=== PATIENT | male | born 1945 | race Caucasian/White ===

== ENCOUNTER 2023-04-14 12:16 | Emergency (ER) | payer MEDICARE, BC ==
--- NOTE | 2023-04-14 12:56 | ED ---
Back Pain HPI - General Chief Complaint: Back Pain/Injury Stated Complaint: Back Pain Time Seen by Provider: 04/14/23 12:26 Source: patient, RN notes reviewed, old records reviewed Limitations: no limitations - History of Present Illness Initial Comments: This is a 77-year-old male presents to the emergency department for evaluation of severe back pain. Pain is episodic for a few days to weeks now. But worsening today he has a history of back pain with his back pain is worse multiple point of patient is unable to do his normal activities of daily living. Patient has persistent back pain here in the ER with no loss of bowel or bladder no neurological deficits MD Complaint: back pain, back injury -: days(s) Similar Symptoms Previously: Yes Place: home Radiation: buttocks, left leg, right leg Severity: moderate Severity scale (1-10): 6 Quality: stabbing Consistency: constant Improves With: none Worsens With: none Associated Symptoms: denies other symptoms Treatments Prior to Arrival: other (0) - Related Data Allergies Allergy/AdvReac Type Severity Reaction Status Date / Time Penicillins Allergy Rash/Hives Verified 04/14/23 12:23 aspirin AdvReac Nausea & Verified 04/14/23 12:23 Vomiting Review of Systems ROS Statement: Those systems with pertinent positive or pertinent negative responses have been documented in the HPI. ROS Other: All systems not noted in ROS Statement are negative. Past Medical History Past Medical History: No Reported History History of Any Multi-Drug Resistant Organisms: None Reported Past Surgical History: No Surgical Hx Reported Past Psychological History: No Psychological Hx Reported Smoking Status: Current every day smoker Past Alcohol Use History: None Reported Past Drug Use History: None Reported General Exam Limitations: no limitations General appearance: alert, in no apparent distress Head exam: Present: atraumatic, normocephalic, normal inspection Eye exam: Present: normal appearance, PERRL, EOMI. Absent: scleral icterus, conjunctival injection, periorbital swelling ENT exam: Present: normal exam, mucous membranes moist Neck exam: Present: normal inspection. Absent: tenderness, meningismus, lymphadenopathy Respiratory exam: Present: normal lung sounds bilaterally. Absent: respiratory distress, wheezes, rales, rhonchi, stridor Cardiovascular Exam: Present: regular rate, normal rhythm, normal heart sounds. Absent: systolic murmur, diastolic murmur, rubs, gallop, clicks GI/Abdominal exam: Present: soft, normal bowel sounds. Absent: distended, tenderness, guarding, rebound, rigid Extremities exam: Present: normal inspection, full ROM, normal capillary refill. Absent: tenderness, pedal edema, joint swelling, calf tenderness Back exam: Present: normal inspection Neurological exam: Present: alert, oriented X3, CN II-XII intact Psychiatric exam: Present: normal affect, normal mood Skin exam: Present: warm, dry, intact, normal color. Absent: rash Course Vital Signs 04/14/23 04/14/23 04/14/23 12:21 17:34 18:41 Temperature 98.4 F 98.1 F Pulse Rate 102 H 82 76 Respiratory 20 16 16 Rate Blood Pressure 166/102 151/76 152/76 O2 Sat by Pulse 99 96 98 Oximetry 04/14/23 20:33 Temperature Pulse Rate 91 Respiratory 18 Rate Blood Pressure 132/83 O2 Sat by Pulse 97 Oximetry - Reevaluation(s) Reevaluation #1: medical records reviewed Reevaluation #2: Patient's back pain is improved Reevaluation #3: Patient informed results and questions answered Reevaluation #4: Was pt. sent in by a medical professional or institution (, PA, CLAIMS ACCOUNT MANAGER, urgent care, hospital, or care home...) When possible be specific @ -no Did you speak to anyone other than the patient for history (EMS, parent, family, police, friend...)? What history was obtained from this source @ -no Did you review nursing and triage notes (agree or disagree)? Why? @ -agree Are old charts reviewed (outside hosp., previous admission, EMS record, old EKG, old radiological studies, urgent care reports/EKG's, care home records)? Report findings @ -yes Differential Diagnosis (chest pain, altered mental status, abdominal pain women, abdominal pain men, vaginal bleeding, weakness, fever, dyspnea, syncope, headach e, dizziness, GI bleed, back pain, seizure, CVA, palpatations, mental health, musculoskeletal)? @ -prior EKG interpreted by me (3pts min.). @ -yes X-rays interpreted by me (1pt min.). @ -no CT interpreted by me (1pt min.). @ -ye patient does have AAAs U/S interpreted by me (1pt. min.). @ -no What testing was considered but not performed or refused? (CT, X-rays, U/S, labs)? Why? @ -none What meds were considered but not given or refused? Why? @ -none Did you discuss the management of the patient with other professionals (professionals i.e. , PA, CLAIMS ACCOUNT MANAGER, lab, RT, psych nurse, social human services assistants, project controls specialist, teacher, security officer, therapeutic case manager)? Give summary @ -no Was smoking cessation discussed for >3mins.? @ -no Was critical care preformed (if so, how long)? @ -no Were there social determinants of health that impacted care today? How? (Homelessness, low income, unemployed, alcoholism, drug addiction, transportation, low edu. Level, literacy, decrease access to med. care, half-way, rehab)? @ -none Was there de-escalation of care discussed even if they declined (Discuss DNR or withdrawal of care, Hospice)? DNR status @ -no What co-morbidities impacted this encounter? (DM, HTN, Smoking, COPD, CAD, Cancer, CVA, ARF, Chemo, Hep., AIDS, mental health diagnosis, sleep apnea, morbid obesity)? @ -none Was patient admitted / discharged? Hospital course, mention meds given and route, prescriptions, significant lab abnormalities, going to OR and other pertinent info. @ - 77 male to the emergency department for evaluation significant back pain here in the ER. Patient is well-controlled currently. Patient with vascular surgery states patient does not need hospital admission his back pain is not being caused by his aneurysm. Patient will follow-up as an outpatient with basilar surgery can be discharged home Discharge Undiagnosed new problem with uncertain prognosis? @ -no Drug Therapy requiring intensive monitoring for toxicity (Heparin, Nitro, Insulin, Cardizem)? @ -no Were any procedures done? @ -no Diagnosis/symptom? @ -AAA Acute, or Chronic, or Acute on Chronic? @ -Acute Uncomplicated (without systemic symptoms) or Complicated (systemic symptoms)? @ -Complicated Side effects of treatment? @ -no Exacerbation, Progression, or Severe Exacerbation? @ -exacerbation Poses a threat to life or bodily function? How? (Chest pain, [place], [place], pneumonia, PE, COPD, DKA, ARF, appy, cholecystitis, CVA, Diverticulitis, Homicidal, Suicidal, threat to staff... and all critical care pts) @ -yes significant AAA Reevaluation #5: Differential Back Pain: Strain, zoster, cauda equina syndrome, epidural abscess, vertebral osteomye litis, discitis, fracture, subluxation, disc herniation, DJD, spinal stenosis, dissection, AAA, pancreatitis, peptic ulcer disease, pyelonephritis, kidney stone, this is not meant to be an all-inclusive list. - Consultations Consultation #1: Spoke with vascular surgery who will see the patient for evaluation patient has an outpatient, not cause of current back pain Medical Decision Making - Medical Decision Making 77 male to the emergency department for evaluation significant back pain here in the ER. Patient is well-controlled currently. Patient with vascular surgery states patient does not need hospital admission his back pain is not being caused by his aneurysm. Patient will follow-up as an outpatient with basilar surgery can be discharged home - Lab Data Result diagrams: 04/14/23 17:13 04/14/23 17:12 Lab Results 04/14/23 04/14/23 04/14/23 Range/Units 13:42 17:12 17:12 WBC (3.8-10.6) k/uL RBC (4.30-5.90) m/uL Hgb (13.0-17.5) gm/dL Hct (39.0-53.0) % MCV (80.0-100.0) fL MCH (25.0-35.0) pg MCHC (31.0-37.0) g/dL RDW (11.5-15.5) % Plt Count (150-450) k/uL MPV Neutrophils % % Lymphocytes % % Monocytes % % Eosinophils % % Basophils % % Neutrophils # (1.3-7.7) k/uL Lymphocytes # (1.0-4.8) k/uL Monocytes # (0-1.0) k/uL Eosinophils # (0-0.7) k/uL Basophils # (0-0.2) k/uL PT 10.7 (10.0-12.5) sec INR 1.0 (<1.2) APTT 23.5 (22.0-30.0) sec Sodium 143 (137-145) mmol/L Potassium 4.0 (3.5-5.1) mmol/L Chloride 103 (98-107) mmol/L Carbon Dioxide 27 (22-30) mmol/L Anion Gap 13 mmol/L BUN 13 (9-20) mg/dL Creatinine 1.02 (0.66-1.25) mg/dL Est GFR (CKD-EPI)AfAm 81 (>60 ml/min/1.73 sqM) Est GFR (CKD-EPI)NonAf 70 (>60 ml/min/1.73 sqM) Glucose 111 H (74-99) mg/dL Plasma Lactic Acid Emerson (0.7-2.0) mmol/L Calcium 10.3 H (8.4-10.2) mg/dL Phosphorus 3.8 (2.5-4.5) mg/dL Magnesium 1.9 (1.6-2.3) mg/dL Total Bilirubin 0.7 (0.2-1.3) mg/dL AST 48 (17-59) U/L ALT 27 (4-49) U/L Alkaline Phosphatase 43 (38-126) U/L Troponin I (0.000-0.034) ng/mL Total Protein 8.3 H (6.3-8.2) g/dL Albumin 4.9 (3.5-5.0) g/dL Urine Color Colorless Urine Appearance Clear (Clear) Urine pH 5.5 (5.0-8.0) Ur Specific [place] 1.006 (1.001-1.035) Urine Protein Negative (Negative) Urine Glucose (UA) Negative (Negative) Urine Ketones Negative (Negative) Urine Blood Negative (Negative) Urine Nitrite Negative (Negative) Urine Bilirubin Negative (Negative) Urine Urobilinogen <2.0 (<2.0) mg/dL Ur Leukocyte Esterase Negative (Negative) 04/14/23 04/14/23 04/14/23 Range/Units 17:12 17:12 17:13 WBC 12.2 H (3.8-10.6) k/uL RBC 5.55 (4.30-5.90) m/uL Hgb 17.6 H (13.0-17.5) gm/dL Hct 53.0 (39.0-53.0) % MCV 95.6 (80.0-100.0) fL MCH 31.7 (25.0-35.0) pg MCHC 33.1 (31.0-37.0) g/dL RDW 12.5 (11.5-15.5) % Plt Count 202 (150-450) k/uL MPV 8.0 Neutrophils % 64 % Lymphocytes % 29 % Monocytes % 5 % Eosinophils % 1 % Basophils % 0 % Neutrophils # 7.7 (1.3-7.7) k/uL Lymphocytes # 3.6 (1.0-4.8) k/uL Monocytes # 0.6 (0-1.0) k/uL Eosinophils # 0.1 (0-0.7) k/uL Basophils # 0.1 (0-0.2) k/uL PT (10.0-12.5) sec INR (<1.2) APTT (22.0-30.0) sec Sodium (137-145) mmol/L Potassium (3.5-5.1) mmol/L Chloride (98-107) mmol/L Carbon Dioxide (22-30) mmol/L Anion Gap mmol/L BUN (9-20) mg/dL Creatinine (0.66-1.25) mg/dL Est GFR (CKD-EPI)AfAm (>60 ml/min/1.73 sqM) Est GFR (CKD-EPI)NonAf (>60 ml/min/1.73 sqM) Glucose (74-99) mg/dL Plasma Lactic Acid [place] 1.8 (0.7-2.0) mmol/L Calcium (8.4-10.2) mg/dL Phosphorus (2.5-4.5) mg/dL Magnesium (1.6-2.3) mg/dL Total Bilirubin (0.2-1.3) mg/dL AST (17-59) U/L ALT (4-49) U/L Alkaline Phosphatase (38-126) U/L Troponin I <0.012 (0.000-0.034) ng/mL Total Protein (6.3-8.2) g/dL Albumin (3.5-5.0) g/dL Urine Color Urine Appearance (Clear) Urine pH (5.0-8.0) Ur Specific [place] (1.001-1.035) Urine Protein (Negative) Urine Glucose (UA) (Negative) Urine Ketones (Negative) Urine Blood (Negative) Urine Nitrite (Negative) Urine Bilirubin (Negative) Urine Urobilinogen (<2.0) mg/dL Ur Leukocyte Esterase (Negative) - EKG Data -: EKG Interpreted by Me (EKG is sinus 81 VT 160 QRS 125 QTc 403) - Radiology Data Radiology results: report reviewed (CT of the abdomen pelvis lumbosacral spine and AAA CT showed no acute bleeding but does show extensive AAA small), image reviewed Disposition Clinical Impression: Mid back pain, Thoracic back pain, AAA (abdominal aortic aneurysm) Disposition: HOME SELF-CARE Condition: Good Instructions (If sedation given, give patient instructions): Nonruptured Abdominal Aortic Aneurysm (DC), Acute Low Back Pain (ED) Is patient prescribed a controlled substance at d/c from ED?: No Referrals: Kirby Thao DO [Doctor of Osteopathic Medicine] - 1-2 days Time of Disposition: 20:00
[2023-04-14] MEDS ORDERED: HYDROmorphone 1 MG/ML 1 ML SYRINGE IM STA (12:57)
[2023-04-14 13:56] LABS: Appearance,Urine Clear (Clear); Bilirubin,Urine Negative (Negative); Blood,Urine Negative (Negative); Color,Urine Colorless; Glucose,Urine (UA) Negative (Negative); Ketones,Urine Negative (Negative); Leukocyte Esterase,Urine Negative (Negative); Nitrite,Urine Negative (Negative); PH, Urine 5.5 (5.0-8.0); Protein,Urine Negative (Negative); Specific Gravity,Urine 1.006 (1.001-1.035); Urobilinogen,Urine <2.0 mg/dL (<2.0)
--- NOTE | 2023-04-14 15:12 | CT ---
EXAMINATION TYPE: CT lumbar spine wo con CT DLP: 1143.6 mGycm, Automated exposure control for dose reduction was used. DATE OF EXAM: 04/14/2023 1:31 PM COMPARISON: . CLINICAL INDICATION:Male, 77 years old with history of pain; PHH, back pain for 1 month TECHNIQUE: Multiple axial images were obtained from the midportion of T11 through the sacroiliac saira nts. Soft tissue and bone windows in coronal and sagittal planes were obtained and reviewed. 3-D ref ormats of the bones were created on a separate workstation and submitted for review. Contrast used: mL of , none. Oral contrast used: none. FINDINGS: There are 5 lumbar-type vertebral bodies. Bones appear demineralized. No evidence of lytic/blastic le alirio. There are moderate to severe multilevel degenerative changes and facet arthrosis, with large br idging osteophytes and relative preservation of the disc spaces which can be seen with DISH. 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 Bony fusion al calos the tips of the spinous processes noted from L1 up into the thoracic spine. No acute fracture is identified. No AP malalignment. No significant scoliosis. Degenerative changes with near complete fus ion of the SI joints. Discs: T12-L1: Mild canal and neural foraminal stenoses. L1-L2: No significant canal stenosis. Mild foraminal stenoses. L2-L3: Mild canal and bilateral foraminal stenosis. L3-L4: Moderate circumferential canal stenosis and mild to moderate foraminal stenoses L4-L5: Moderate spinal canal and bilateral neural foraminal stenoses. L5-S1: Moderate spinal canal stenosis with significant disc osteophyte extension to the right lateral recess and right neural foramen with severe right neural foraminal stenosis. Moderate to severe left neural foraminal stenosis. Other: Please refer to same day CT body report for further description of findings. IMPRESSION: 1. Generalized osteopenia. Diffuse moderate to severe chronic/degenerative changes throughout the patrica mbar spine, with findings suggestive of DISH. 2. No evidence of fracture or traumatic malalignment.
--- NOTE | 2023-04-14 15:33 | CT ---
EXAMINATION TYPE: CT abdomen pelvis wo con CT DLP: 1143.6 mGycm, Automated exposure control for dose reduction was used. DATE OF EXAM: 04/14/2023 1:31 PM COMPARISON: CLINICAL INDICATION:Male, 77 years old with history of pain; back pain for 1 month TECHNIQUE: Axial CT of the abdomen and pelvis. Sagittal and coronal reformats were created on a [employer] workstation. Contrast used: mL of , (none if empty) Oral contrast used: without Oral Contrast (none if empty) FINDINGS: Exam is limited by lack of contrast. LOWER CHEST: Scarring/senescent changes. Prominent pleural fat on the left, no sizable pleural or per icardial effusion. Heart size upper normal with moderate coronary arterial calcifications. Ascending thoracic aorta appears dilated measuring up to 3.9 cm however incompletely seen or assessed. Eventration is noted along the diaphragm bilaterally. ABDOMEN LIVER: Grossly unremarkable. GALLBLADDER AND BILE DUCTS: Unremarkable. PANCREAS: Fatty infiltrated without acute finding SPLEEN: Unremarkable. ADRENAL GLANDS: Unremarkable. KIDNEYS AND URETERS: A couple punctate left renal calculi. Extrarenal pelvis bilaterally. No dilated ureters or ureteral calculi seen. PELVIS BLADDER: Base of bladder indented by the enlarged prostate. Bladder is mildly distended. There are a couple of adjacent calculi within the left posterior bladder measuring up to 8 mm and 5 mm. REPRODUCTIVE: Prostate appears enlarged, transverse measures 5.9 cm and extends about 5.3 cm cranioc audally. A few tiny parenchymal calcifications are seen. ABDOMEN & PELVIS STOMACH AND BOWEL: Stomach and small bowel are nondistended, no evidence of obstruction. Appendix i s not identified with certainty, however there is no inflammatory process seen in the RLQ. Mild/mode rate stool and gas throughout the colon. Scattered diverticula are seen, mostly in the sigmoid region , without evidence of diverticulitis. Sigmoid is noted to be quite tortuous and redundant. PERITONEUM/RETROPERITONEUM: No evidence of pneumoperitoneum or free fluid. There is no periaortic/r etroperitoneal fluid seen. VASCULATURE: Moderate atherosclerotic calcifications are present throughout the abdominal aorta and i ts branches. Mild narrowing suggested at the proximal celiac and superior mesenteric arteries. Probab le mild narrowing at the proximal renal arteries. Infrarenally, there is a bilobed aneurysm, somewhat fusiform but predominantly saccular in appearance. The superiormost portion measures 4.8 cm AP by 4. 6 cm transverse. Just inferiorly the diameter reduces to 3.9 x 4 cm, before the second lobe of the an eurysm which measures 5.3 cm AP by 5.2 cm transverse. The aneurysm terminates by the bifurcation. Dif fuse moderate calcifications throughout the iliac arterial trees. The right common iliac is 1.3 cm, l eft is 1.2 cm. MUSCULOSKELETAL: No acute osseous abnormalities. Generalized osteopenia and moderate bilateral hip ar thropathy. Please refer to separate lumbar spine CT report for further description of findings. LYMPH NODES: No gross evidence for lymphadenopathy. SOFT TISSUE/ABDOMINAL WALL: Small fat filled bilateral inguinal hernias. Mild bilateral gynecomastia. IMPRESSION: 1. No evidence of an acute obstructive or inflammatory process in the abdomen or pelvis. 2. Diffuse calcific atherosclerotic disease of the aorta and major branches. There is a bilobed infr arenal AAA with the largest portion measuring up to 5.3 cm. Vascular consult recommended. 3. Bladder calculi. Punctate left renal calculi. No hydronephrosis. 4. Other chronic and likely incidental findings, as described above.
[2023-04-14] MEDS ORDERED: SODIUM CHLORIDE 0.9% 1,000 ML IV STA (16:59)
[2023-04-14] MEDS ORDERED: LORazepam 2 MG/ML INJ IV STA (16:59)
[2023-04-14] MEDS ORDERED: HYDROmorphone 1 MG/ML 1 ML SYRINGE IVP STA (16:59)
[2023-04-14 17:24] LABS: Basophils # (A) 0.1 k/uL (0-0.2); Basophils % (A) 0 %; Eosinophils # (A) 0.1 k/uL (0-0.7); Eosinophils % (A) 1 %; HGB 17.6 gm/dL (13.0-17.5); Lymphocytes # (A) 3.6 k/uL (1.0-4.8); Lymphocytes % (A) 29 %; MCH 31.7 pg (25.0-35.0); MCHC 33.1 g/dL (31.0-37.0); MCV 95.6 fL (80.0-100.0); Monocytes # (A) 0.6 k/uL (0-1.0); Monocytes % (A) 5 %; Neutrophils # (A) 7.7 k/uL (1.3-7.7); Neutrophils % (A) 64 %; Platelet Count 202 k/uL (150-450); RBC 5.55 m/uL (4.30-5.90); RDW 12.5 % (11.5-15.5); WBC 12.2 k/uL (3.8-10.6)
[2023-04-14 17:33] LABS: Partial Thromboplastin Time 23.5 sec (22.0-30.0); Prothrombin Time 10.7 sec (10.0-12.5)
[2023-04-14 17:55] LABS: ALT 27 U/L (4-49); AST 48 U/L (17-59); African American GFR (CKD) 81 (>60 ml/min/1.73 sqM); Albumin 4.9 g/dL (3.5-5.0); Alkaline Phosphatase 43 U/L (38-126); Anion Gap 13 mmol/L; Blood Urea Nitrogen 13 mg/dL (9-20); Calcium 10.3 mg/dL (8.4-10.2); Carbon Dioxide 27 mmol/L (22-30); Chloride 103 mmol/L (98-107); Glucose 111 mg/dL (74-99); Magnesium 1.9 mg/dL (1.6-2.3); Non-African American GFR(CKD) 70 (>60 ml/min/1.73 sqM); Phosphorus 3.8 mg/dL (2.5-4.5); Sodium 143 mmol/L (137-145); Total Bilirubin 0.7 mg/dL (0.2-1.3); Total Protein 8.3 g/dL (6.3-8.2)
[2023-04-14 18:49] VITALS: TEMP 98.1
--- NOTE | 2023-04-14 19:25 | CT ---
EXAMINATION TYPE: CT angio thor/abd pel aorta CT DLP: 1217..9 mGycm, Automated exposure control for dose reduction was used. DATE OF EXAM: 04/14/2023 6:47 PM COMPARISON: 04/14/2023. CLINICAL INDICATION:Male, 77 years old with history of AAA; TECHNIQUE: Dissection protocol: Multiple axial CT images of the chest, abdomen, and pelvis were obtai gabriel prior and to the administration of IV contrast. 3-D reformats and maximum intensity projection fo rmat were performed on a separate workstation. Contrast used:100ml mL of Isovue 370 without and with IV Contrast, Oral contrast used: FINDINGS: ARTERIAL VASCULATURE: Ascending descending thoracic aorta are within normal limits for size. No evide nce for dissection. No evidence for filling defect to suggest pulmonary embolus. The origins of the a bdominal aorta are patent. There is no evidence for dissection. There is fusiform dilation and the di stal portion up to 46 x 43 mm as well as a more distal portion of dilation or mural thrombus measurin g 5.3 x 5.1 cm. PULMONARY ARTERIAL VASCULATURE: Normal caliber. No evidence of filling defect to suggest pulmonary em bolus. VENOUS SYSTEM: Unremarkable Lungs/pleura: The lung parenchyma appears unremarkable. Heart: Heart is enlarged for size. There is moderate coronary artery atherosclerosis. Mediastinum: No gross evidence of adenopathy. Lower Neck: No significant findings. Abdomen: Liver: Unremarkable. Gallbladder and Bile ducts: Unremarkable. Pancreas: Unremarkable. Spleen: Unremarkable. Adrenal glands: Unremarkable. Kidneys and Ureters: No hydronephrosis. Non obstructing left 5 mm calculus. No right renal calculi. Bladder: There are 2 bladder stones in the left bladder near the ureterovesicular junction layering d ependently measuring up to 10 mm and 7 mm Reproductive: The prostate gland is enlarged up to 6.0 cm. Stomach and Bowel: Unremarkable. No evidence of bowel obstruction. Peritoneum: No evidence of pneumoperitoneum, free fluid, or adenopathy. Musculoskeletal: The osseous structures appear intact. There is severe degeneration changes with oste ophyte formation and facet joint arthropathy throughout the spine. Lymph nodes: No evidence of lymphadenopathy. Abdominal wall/soft tissues: Bilateral fat-containing inguinal hernias. IMPRESSION: 1. Infrarenal abdominal aortic fusiform aneurysmal dilation anterior is first measuring up to 46 mm proximally without mural thrombus and the second measuring 53 mm inferiorly with mural thrombus. 2. Prostatomegaly, correlate serum PSA. 3. Bladder stones present.
[2023-04-14] MEDS ORDERED: KETOROLAC 15 MG/ML 1 ML VIAL IVP STA (20:01)
[2023-04-14] MEDS ORDERED: IBUPROFEN 600 MG STARTER PACK 4 TAB BTL PO STA (20:01)
[2023-04-14] MEDS ORDERED: ACET/COD 300 MG/30 MG STARTER PACK 6 TAB BTL PO STA (20:01)
[2023-04-14 20:37] VITALS: BP 132/83; PULSE 91; RESP 18
== END 2023-04-14 20:41 | disposition home or self-care (01) ==
LOC: EC 12:16
DX: I71.40 Abdominal aortic aneurysm, without rupture, unspecified (principal); I70.0 Atherosclerosis of aorta; N20.0 Calculus of kidney; M47.816 Spondylosis without myelopathy or radiculopathy, lumbar region; F17.200 Nicotine dependence, unspecified, uncomplicated; Z88.0 Allergy status to penicillin; Z88.6 Allergy status to analgesic agent
CPT/HCPCS: 96375 ×3; 96372 ×2; 96361 ×2; 99284 ×2; 96374; 36415; 93005; 80053; 83605; 83735; 84100; 84484; 85025; 85610; 85730; 81003; 72131; 71275; 74176; 74174; J2060; J1170; J1885; Q9967